=== PATIENT | female | born 1985 | race Caucasian/White ===

== ENCOUNTER 2017-08-14 02:04 | Day surgery (SDC) | payer BC ==
[2016-06-08 07:22] VITALS: Ht 175.3 cm; Wt 106.1 kg
[~2017-08-14] VITALS: Ht 175.3 cm; Wt 106.1 kg
[~2017-08-14 02:04] MED LIST: ACET-1718 PO; ACET-1966 PO; IBUP-56 PO; IBUP800T37 PO; OMEP-218 PO; PREN-127 PO
[2017-08-14] MEDS ORDERED: LIDOCAINE MPF 1% 5 ML VIAL ONE (08:28)
[2017-08-14] MEDS ORDERED: ONDANSETRON 4 MG/2 ML VIAL ONE (08:28)
[2017-08-14] MEDS ORDERED: PROPOFOL EMUL(*) 10MG/ML 20 ML 20 ML ONE (08:28)
[2017-08-14] MEDS ORDERED: fentaNYL CITR 100 MCG/2 ML AMP ONE ×4 (08:28→12:15)
[2017-08-14] MEDS ORDERED: DEXAMETHASONE SOD 4 MG/ML VIAL ONE (08:28)
[2017-08-14] MEDS ORDERED: KETAMINE HCL 200 MG/20 ML MDV ONE (08:29)
[2017-08-14] MEDS ORDERED: NORMOSOL R SOLN(*) 1000 ML BAG 1,000 ML IV PRN (09:00)
[2017-08-14] MEDS ORDERED: MIDAZOLAM 2 MG/2 ML VIAL IVP PRN (09:00)
[2017-08-14] MEDS ORDERED: LIDOCAINE/SOD BICARB 8.4% SYR ID ONE (09:00)
[2017-08-14] MEDS ORDERED: FAMOTIDINE 20 MG TAB PO ONE (09:00)
[2017-08-14 09:16] LABS: PLATELET COUNT, AUTOMATED 243 K/uL (150-450)
[2017-08-14] MEDS ORDERED: FERRIC SUBSULFATE 8 GM TP ONE ×3 (09:25→11:04)
[2017-08-14 09:28] VITALS: BP 111/69
[2017-08-14] MEDS ORDERED: VASOPRESSIN 20 UNIT/ML VIAL ONE (09:44)
[2017-08-14] MEDS ORDERED: METHYLERGONOVINE MAL 0.2MG/ML ONE (09:44)
[2017-08-14] MEDS ORDERED: NS(*) 0.9% 100 ML BAG 100 ML ONE (09:49)
[2017-08-14] MEDS ORDERED: IBUP800T37 PO (11:28)
[2017-08-14] MEDS ORDERED: OXYC-865 PO (11:28)
[2017-08-14] MEDS ORDERED: PROMETHAZINE 25 MG/ML 1 ML AMP ONE (11:29)
[2017-08-14] MEDS ORDERED: LR(*) 1000 ML BAG 1,000 ML IV ONE (11:31)
--- NOTE | 2017-08-14 11:31 | Short(Outpt) Discharge Summary ---
Discharge Summary Reason for Hosp/Final Diag: (1) S/P conization of cervix Discharge Instructions Home Meds Active Scripts Ibuprofen (IBUPROFEN) 800 Mg Tablet, 1 TAB PO Q8H Y for pain, #30 TAB 0 Refills TAKE WITH FOOD EVERY 8 HOURS Prov:TOMY ESPARZA MD 08/14/17 Oxycodone Hcl/Acetaminophen (PERCOCET 5-325 MG TABLET) 1 Each Tablet, 1-2 TAB PO Q4H Y for pain, #30 TAB 0 Refills Prov:TOMY ESPARZA MD 08/14/17 Reported Medications Acetaminophen (TYLENOL) 325 Mg Tablet, 650 MG PO, TAB 08/07/17 Ibuprofen (IBUPROFEN) 200 Mg Tablet, 2 TAB PO PRN, TAB 08/07/17 Follow up Referrals: TUBE TESTER - In One Week @ [facility] [place] with Tomy Esparza Md Diet: Regular Activity: No Heavy Lifting TOMY ESPARZA MD August 14, 2017 11:31
--- NOTE | 2017-08-14 11:33 | Post Operative Note ---
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
[2017-08-14] MEDS ORDERED: METOCLOPRAMIDE 10 MG/2 ML SDV IVP PRN (11:35)
[2017-08-14 12:38] VITALS: BP 124/90
[2017-08-14 13:25] VITALS: BP 133/86
[2017-08-14 13:40] VITALS: BP 119/70
[2017-08-14 13:41] VITALS: BP 106/62
--- NOTE | 2017-08-14 15:06 | OPERATIVE REPORT 1 ---
EVENT DATE: August 14, 2017 SURGEON: Yasmeen Esparza MD ANESTHESIOLOGIST: Amari Sandhu MD ANESTHESIA: General LMA. ELECTRICAL UNIT REBUILDER: Chucky Larry DO PREOPERATIVE DIAGNOSIS Adenocarcinoma in situ of the cervix. POSTOPERATIVE DIAGNOSIS Adenocarcinoma in situ of the cervix. PROCEDURES PERFORMED 1. Cold knife conization of the cervix. 2. Hysteroscopic dilation and curettage. SPECIMENS REMOVED 1. Cervical cone biopsy. 2. Endometrial curettings. ESTIMATED BLOOD LOSS 150 mL INDICATIONS FOR PROCEDURE A 31-year-old G2, P2 presents for cold knife conization and hysteroscopic D and C for adenocarcinoma in situ. The patient had a Pap smear with positive HPV 16 , but otherwise normal cells. She then underwent a colposcopy with a 6 o'clock biopsy that revealed adenocarcinoma in situ. She, therefore, was admitted for the above-said procedure. Please see history and physical for full details. DESCRIPTION OF PROCEDURE The patient was properly identified and taken to the operating room. She was placed under general anesthesia with a LMA. She was then placed in the dorsal lithotomy position and prepped on the outer external genitalia for a vaginal procedure without an internal prep so as to not interfere with the cervix. A Graves speculum was then placed to visualize the cervix, and Lugol solution was applied to the cervix to identify the outer limits of the transformation zone. Two stay sutures were then placed at 3 and 9 o'clock positions to help with traction of the cervix. Next, an 11 blade scalpel was then utilized to perform the conization, working from the posterior aspect in a circumferential manner. This did come out in two separate sections. The right aspect of the conization was then marked with an 0 Vicryl suture, and the left aspect was left unmarked. These were then sent to Pathology. Next, using electrocautery, the bed of the conization was made nearly hemostatic. Once this was an appropriate amount of bleeding, attention was then turned to the hysteroscopy. The cervical os was identified and serially dilated to 7 mm using Hegar dilators without difficulty. The hysteroscope was then assembled, primed, and prepared. The hysteroscope was introduced under direct visualization, and the endometrial cavity appeared within normal limits without any obvious lesions. A circumferential curettage was then performed with the MyoSure Lite device. These endometrial curettings were then sent to Pathology as well. The hysteroscope was then terminated, and attention was again turned to obtaining hemostasis of the conization in the bed of the cone. Monsel's was initially applied; however, there was sufficient bleeding that this was not adequate; therefore, two 0 Vicryl sutures were utilized to help with hemostasis of the bed, followed by further electrocautery. It did take a significant amount of manipulation; however, adequate hemostasis was then assured. This also required the assistance of Dr. Larry to help with visualization of the bed for this hemostasis. Once this was completed, the stay sutures were cut, and the speculum was removed. The bladder was then drained of 150 mL of clear yellow urine. The patient tolerated this procedure well and recovered in the post-anesthesia care unit. BREA
[2017-08-14] MEDS ORDERED: IBUPROFEN 800 MG TAB PO SCH (17:00)
== END 2017-08-14 12:38 | disposition home or self-care (01) ==
LOC: OR 02:04
PROVIDERS: ATTEND Obstetrics & Gynecology
DX: D06.9 Carcinoma in situ of cervix, unspecified (principal)
CPT/HCPCS: 36415; 57520; 84702; 85025; J1100; J2001; J2210; J2250; J2405; J2550; J2704; J3010; J3490; J7050

== ENCOUNTER → 2017-09-23 | Outpatient (CLI) | payer BC ==
[2016-06-08 07:22] VITALS: BMI 37.4
[~2017-09-23] MED LIST changes: +OXYC-865 PO
--- NOTE | 2017-09-23 13:31 | EKG ---
[place] [facility] [place] WEI DAUGHERTY : [id number] MR: [id number] V: [id number] EXAM DATE: ORDERING PHYSICIAN: ANGELA AGOSTO TECHNOLOGIST: ELAN Test Reason : CERVICAL CA Blood Pressure : / mmHG Vent. Rate : 070 BPM Atrial Rate : 070 BPM P-R Int : 170 ms QRS Dur : 084 ms QT Int : 402 ms P-R-T Axes : 060 068 061 degrees QTc Int : 434 ms Normal sinus rhythm Normal ECG No previous ECGs available Confirmed by KAREN GODINEZ ([id number]) on 09/24/2017 6:26:08 AM Referred By: SURENDRA Confirmed By:KAREN GODINEZ
== END ==
LOC: RESP 13:05
PROVIDERS: ATTEND Obstetrics & Gynecology Gynecologic Oncology
DX: C53.0 Malignant neoplasm of endocervix (principal)
CPT/HCPCS: 93005

== ENCOUNTER → 2017-09-25 | Outpatient (CLI) | payer BC ==
[2016-06-08 07:22] VITALS: BMI 37.4
[2017-09-25 13:13] LABS: INR 0.99
== END ==
LOC: LAB 12:52
PROVIDERS: ATTEND Obstetrics & Gynecology Gynecologic Oncology
DX: C53.0 Malignant neoplasm of endocervix (principal)
CPT/HCPCS: 36415; 82310; 82374; 82435; 82565; 82947; 84132; 84295; 84520; 85027; 85610